=== PATIENT | female | born 1985 | race Caucasian/White ===

== ENCOUNTER 2017-05-29 13:27 | Emergency (ER) | payer OTHER ==
[2017-05-29 13:35] VITALS: BP 128/96; PULSE 93; RESP 18; TEMP 97.9; O2SAT 96
--- NOTE | 2017-05-29 13:48 | EDPHY ---
H & P Stated Complaint: Fall, R Hip Pain HPI/ROS: HPI CHIEF COMPLAINT: Fall right hip pain HISTORY OF PRESENT ILLNESS: This patient is a very pleasant 32-year-old female , otherwise healthy denies significant medical history she presents emergency room by private vehicle with right lateral hip pain status post mechanical fall while skiing. Patient states he slipped on ice and then fell on her right hip. She now has lateral right hip pain. She is able to bear weight. She has full range of motion of her hip. She decided come the emergency room due to ongoing pain. Denies any focal weakness or numbness or tingling. Denies any other areas of injuries. She was helmeted. She denies headache or neck pain. Denies chest pain or shortness of breath. Past Medical History: No significant medical history Past Surgical History: No significant surgical history Social History: Denies drugs alcohol tobacco products. Family History: Noncontributory ROS REVIEW OF SYSTEMS: A comprehensive 10 point review of systems is otherwise negative aside from elements mentioned in the history of present illness. Exam Constitutional triage nursing summary reviewed, vital signs reviewed, awake/ alert. Eyes normal conjunctivae and sclera, EOMI, PERRLA. HENT normal inspection, atraumatic, moist mucus membranes, no epistaxis, neck supple/ no meningismus, no raccoon eyes. Respiratory clear to auscultation bilaterally, normal breath sounds, no respiratory distress, no wheezing. Cardiovascular rate normal, regular rhythm, no murmur, no edema, distal pulses normal. Gastrointestinal soft, non-tender, no rebound, no guarding, normal bowel sounds, no distension, no pulsatile mass. Genitourinary no CVA tenderness. Musculoskeletal no midline vertebral tenderness, full range of motion, no calf swelling, no tenderness of extremities, no meningismus, good pulses, neurovascularly intact. RLE: Tender palpation over the right lateral hip. Soft tissue swelling. No crepitus. Full range of motion of the right hip full flexion extension. Distally neurovascular intact good pulse. Good cap refill. Sensation intact. Able to bear weight on it. Skin pink, warm, & dry, no rash, skin atraumatic. Neurologic awake, alert and oriented x 3, AAOx3, moves all 4 extremities equally, motor intact, sensory intact, CN II-XII intact, normal cerebellar, normal vision, normal speech. Psychiatric normal mood/affect. Heme/Lymph/Immune no lymphadenopathy. Differential Diagnosis: Includes but is not limited to in a particular order soft tissue injury, fracture, hip dislocation Medical Decision Making:Plan for this patient x-ray right hip to rule out fracture. Ibuprofen anti-inflammatory pain medicine for pain control. Re-evaluation: Right hip x-ray reviewed no acute fracture. Patient feels comfortable nerve planning. Patient does not want crutches. Will write a prescription for ibuprofen 800 mg. She understands ice her hip and follow up with Orthopedics if she continues pain. Rest. Source: Patient - Personal History LMP (Females 10-55): Over 28 Days Ago Current Tetanus Diphtheria and Acellular Pertussis (TDAP): Yes Tetanus Vaccine Date: 2010 - Medical/Surgical History Hx Asthma: No Hx Chronic Respiratory Disease: No Hx Diabetes: No Hx Cardiac Disease: No Hx Renal Disease: No Hx Cirrhosis: No Hx Alcoholism: No Hx HIV/AIDS: No Hx Splenectomy or Spleen Trauma: No Other PMH: PMH: dental,. PSH: false tooth, acl surgery bilat - Social History Smoking Status: Never smoked Constitutional: Initial Vital Signs Temperature (C) 36.6 C 05/29/17 13:32 Heart Rate 93 05/29/17 13:32 Respiratory Rate 18 05/29/17 13:32 Blood Pressure 128/96 H 05/29/17 13:32 O2 Sat (%) 96 05/29/17 13:32 O2 Delivery Mode Room Air Allergies/Adverse Reactions: No Known Allergies Allergy (Unverified 07/17/11 18:24) Home Medications: Medication Instructions Recorded Ibuprofen [Motrin (*)] 800 mg PO Q6-8PRN #10 tab 05/29/17 Medical Decision Making - Diagnostics Imaging Results: Imaging Impressions Hip X-Ray 05/29/17 13:35 Impression: Normal. 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 - Data Points Medications Given: Discontinued Medications Ibuprofen (Motrin) 800 mg PO EDNOW ONE Stop: 05/29/17 13:51 Last Admin: 05/29/17 14:01 Dose: 800 mg Departure - Departure Disposition: Home, Routine, Self-Care Clinical Impression: Contusion, hip Qualifiers: Encounter type: initial encounter Laterality: right Qualified Code(s): S70.01XA - Contusion of right hip, initial encounter Condition: Good Instructions: Hip Contusion (ED) Additional Instructions: 1. Ice your hip. 2. Ibuprofen for mild pain control. 3. Follow up with Orthopedics as needed. Referrals: Josey Hardy MD [Primary Care Provider] - As per Instructions Anthony Raza MD [Medical Doctor] - As per Instructions Prescriptions: Ibuprofen [Motrin (*)] 800 mg PO Q6-8PRN #10 tab
[2017-05-29] MEDS ORDERED: IBUPROFEN 800 MG TAB PO ONE (13:50)
== END 2017-05-29 14:45 | disposition home or self-care (01) ==
DX: S70.01XA Contusion of right hip, initial encounter (principal); V00.321A Fall from snow-skis, initial encounter; Y99.8 Other external cause status; Y93.23 Activity, snow (alpine) (downhill) skiing, snowboarding, sledding, tobogganing and snow tubing

== ENCOUNTER → 2017-09-16 | Outpatient (CLI) | payer OTHER | LOC: BMCIMAGING 14:16 | PROVIDERS: ATTEND Emergency Medicine | DX: S69.92XA Unspecified injury of left wrist, hand and finger(s), initial encounter (principal) ==